=== PATIENT | male | born 1965 | race Caucasian/White ===

== ENCOUNTER → 2017-08-26 | Day surgery (SDC) | payer BC ==
[2017-08-25 16:00] LABS: BASOPHILS # (AUTO) 0.1 (0.0-0.1); BASOPHILS % 0.8 % (0.0-1.0); EOSINOPHILS # (AUTO) 0.1 (0.0-0.4); EOSINOPHILS % 1.2 % (0.0-6.0); HEMATOCRIT 43.7 % (38.2-49.6); LYMPHOCYTES # (AUTO) 1.9 (1.0-3.2); LYMPHOCYTES % 25.6 % (18.0-39.1); MEAN CORPUSCULAR HGB CONC 34.3 g/dL (31-35); MEAN CORPUSCULAR VOLUME 96.3 fL (81-99); MONOCYTES # (AUTO) 0.8 (0.2-0.8); MONOCYTES % 10.8 % (4.4-11.3); NEUTROPHILS # (AUTO) 4.5 (2.1-6.9); NEUTROPHILS % 61.2 % (38.7-80.0); PLATELET COUNT 251 x10e3/uL (140-360); RED BLOOD COUNT 4.54 x10e6/uL (4.3-5.7); RED CELL DISTRIBUTION WIDTH 13.3 % (11.7-14.4)
[2017-08-25 16:11] LABS: INR 0.94; PROTHROMBIN TIME 11.8 seconds (11.9-14.5)
[2017-08-25 16:21] LABS: ALANINE AMINOTRANSFERASE 43 IU/L (0-55); ALBUMIN 4.2 g/dL (3.5-5.0); ALBUMIN/GLOBULIN RATIO 1.4 (0.8-2.0); ALKALINE PHOSPHATASE 60 IU/L (40-150); BLOOD UREA NITROGEN 15 mg/dL (7-26); BUN/CREATININE RATIO 15 (6-25); CALCIUM 9.5 mg/dL (8.4-10.2); CARBON DIOXIDE 28 mmol/L (22-29); CHLORIDE 106 mmol/L (98-107); CHOL/HDL RATIO 2.6 (3.9-4.7); CHOLESTEROL 118 MD/DL (0-199); CREATININE, SERUM 1.03 mg/dL (0.72-1.25); EST GLOMERULAR FILTRATION RATE > 60 ML/MIN (60-); GLUCOSE 95 mg/dL (74-118); HDL CHOLESTEROL 46 MG/DL (40-60); LDL CHOLESTEROL 52 MG/DL (60-130); SODIUM 140 mmol/L (136-145); TRIGLYCERIDES 98 MG/DL (0-149)
[~2017-08-26] VITALS: Ht 172.7 cm; Wt 81.6 kg
[~2017-08-26] MED LIST: ASPIR 8181 MG PO; ATORVASTATIN CA20 MG PO; FENTANYL CITRATE/PF 100MCG/2 ML INJ ONE; HEPARIN SOD/SOD CHLORIDE 2,000 ML ONE; IOPAMIDOL 370 MG/ML 200 ML INFUS..BTL INJ ONE; LIDOCAINE HCL 2% LOCAL 20 ML VIAL ONE; LISINOPRIL10 MG PO; LISINOPRIL2.5 MG PO; LISINOPRIL20 MG PO; METOPROLOL SUCC50 MG PO; METOPROLOL TART25 MG PO; MIDAZOLAM HCL 2 MG/2 ML VIAL ONE; SODIUM CHLORIDE 0.9% 1000ML 1,000 ML ONE
[2017-08-26 06:36] VITALS: BP 184/109
--- OUTSIDE RECORDS SUMMARY | 2017-08-26 07:50 | XMS REPORT | Clinical Summary ---
Author Author [facility] Address Unknown Phone Unavailable Care Team Providers Care Sociocultural Anthropology Professor Name Role Phone PCP Unavailable Allergies No Known Allergies Current Medications Prescription Sig. Disp. Refills Start End Date Status Date atorvastatin (LIPITOR) 40 Take 1 tablet (40 mg 30 tablet 1 07/18/19 Active MG tablet total) by mouth daily. 16 metoprolol (LOPRESSOR) 25 Take 0.5 tablets (12.5 mg 60 tablet 1 Active MG tablet total) by mouth 2 (two) 16 times daily. 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
[2017-08-26 12:07] VITALS: BP 162/94
--- NOTE | 2017-08-26 15:15 | Operative Report ---
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 PROCEDURES PERFORMED 1. Left heart catheterization. 2. Selective coronary angiography. 3. Selective left internal mammary artery to anomalous circumflex from the right coronary cusp angiography. 4. Selective saphenous vein graft to left anterior descending angiography. 5. Right common femoral artery 6-Mexican Angio-Seal closure. PROCEDURE COMPLICATIONS: None. ESTIMATED BLOOD LOSS: Less than 15 mL. PROCEDURE SUMMARY: After consent was obtained, patient was prepped and draped in sterile fashion. The right femoral site was locally infiltrated with 2% lidocaine. Access was obtained using a micropuncture and a 6-Mexican sheath was placed. All catheters were into the proximal ascending aorta over a J-wire and ROSARIO catheter was exchanged over a wire at the subclavian level. JL4 was used for engagement of the left main. JR4 used for engagement of the right coronary artery, engagement of an atheretic, anomalous circumflex from right coronary cusp and engagement of the SVG to LAD. An ROSARIO catheter was used for selective engagement of DAY to anomalous circumflex from right coronary cusp. The JL4 was also used to cross the aortic valve for hemodynamic measurements. At the end of the procedure, a 6-Mexican Angio-Seal was successfully deployed to the right common femoral artery. The following findings were observed: 1. LV pressure 185/18 with end-diastolic pressure of 32. 2. Aortic pressure was 181/95. 3. LVgram revealed preserved left ventricular systolic function and normal regional wall motion with left ventricular ejection fraction of 55% to 60%. 4. There is LAD that arises from the left coronary cusp. It has 60% to 70% mid stenosis prior to the distal anastomosis of the SVG graft. Reflux of the SVG graft is observed from selective engagement of the LAD. The distal LAD is overall small in caliber and seems to be diffusely diseased and somewhat atheretic, with calculated lumen less than 1.5 mm. A couple of diagonals arise prior to the distal anastomosis of the SVG to LAD from the LAD [place] and multiple septal perforators arise from this vessel. 5. The circumflex arises from the right coronary cusp. The origin of this vessel is now atheretic, 99% diseased. There is a left internal mammary artery that perfuses this anomalous circumflex with distal anastomosis of the DAY to an obtuse marginal. There are overall 4 obtuse marginals arising from the circumflex. 6. The right coronary artery is dominant in the proximal portion. There is calcific 30% tubular stenosis. There is over 30% total stenosis. It gives a terminal RPDA and RPLV. 7. Left ventriculogram reveals preserved left ventricular systolic function, normal regional wall motion, left ventricular ejection fraction 55% to 60%. 8. SVG to LAD has 30% mid tubular stenosis. It is a large caliber vein graft that anastomoses distally to a bifurcation of the LAD into small caliber diagonal and a small diffusely diseased distal LAD. 9. The DAY to circumflex is patent with luminal irregularities. CONCLUSIONS 1. Patent left internal mammary artery to anomalous circumflex. 2. Mild disease of saphenous vein graft from aorta to distal left anterior descending. 3. Mild disease of right coronary artery. CONCLUSION 1. Mildly elevated left ventricular end-diastolic pressure. 2. Uncontrolled blood pressure. 3. Preserved left ventricular systolic function. 4. Patent grafts with progression of [place] disease. RECOMMENDATIONS: Intensify medical management including smoking cessation, up-titration of statin therapy, continuation of antiplatelet therapy and up-titration of antihypertensive medications as needed. Weight loss and lifestyle optimization has been extensively discussed. Four-hour bed rest, IV fluids. Anticipate discharge later today. Job#: [id number] WARD
== END | disposition home or self-care (01) ==
LOC: CATH LAB 07:47
PROVIDERS: ATTEND Internal Medicine Cardiovascular Disease
DX: I25.798 Atherosclerosis of other coronary artery bypass graft(s) with other forms of angina pectoris (principal); R94.39 Abnormal result of other cardiovascular function study; I10 Essential (primary) hypertension; Z95.1 Presence of aortocoronary bypass graft; Q24.5 Malformation of coronary vessels; R00.1 Bradycardia, unspecified; E78.5 Hyperlipidemia, unspecified; F17.200 Nicotine dependence, unspecified, uncomplicated; Z01.810 Encounter for preprocedural cardiovascular examination; Z01.812 Encounter for preprocedural laboratory examination; Z79.82 Long term (current) use of aspirin; Z68.27 Body mass index [BMI] 27.0-27.9, adult
CPT/HCPCS: 36415; 80053; 80061; 85025; 85610; 93005; 93459; C1769; J2001; J2250; J7030; Q9967; 36140; 77002

== ENCOUNTER → 2020-01-10 | Day surgery (SDC) | payer BC, OTHER ==
[~2020-01-10] MED LIST changes: +ACETAMINOPHEN/CODEINE 300MG - 30MG TAB ONE; +CEFAZOLIN SOD 1 GM VIAL ONE; +DEXAMETHASONE SOD PHOS INJ 4 MG/ML VIAL ONE; -HEPARIN SOD/SOD CHLORIDE 2,000 ML ONE; +HYDROMORPHONE 2MG/ML 2 MG/ML ML ONE; -IOPAMIDOL 370 MG/ML 200 ML INFUS..BTL INJ ONE; +KETOROLAC TROMETHAMINE 30 MG/ML VIAL ONE; -LIDOCAINE HCL 2% LOCAL 20 ML VIAL ONE; +LIDOCAINE HCL 2% LOCAL INJ 5 ML SDV VIAL INJ ONE; +ONDANSETRON HCL INJ 2MG/ML 2ML 2 MG/ML VIAL ONE; +PROPOFOL IV EMULSION 10 MG/ML 20 ML VIAL ONE; +SEVOFLURANE INHAL SOLN 250 ML PEN BTL ONE; -SODIUM CHLORIDE 0.9% 1000ML 1,000 ML ONE
[2020-01-10 10:15] VITALS: BP 168/98
--- NOTE | 2020-01-11 14:36 | Operative Report ---
DATE OF PROCEDURE: 01/10/2020 SURGEON: Efraín Anderson MD HOOP MACHINE OPERATOR: Kevon Aparicio, certified PA. PREOPERATIVE DIAGNOSIS: Right knee bucket-handle medial meniscal tear. POSTOPERATIVE DIAGNOSIS: Right knee bucket-handle medial meniscal tear. PROCEDURES: Right knee arthroscopy and partial medial meniscectomy. INDICATIONS: The patient is a 54-year-old gentleman with a several month history of pain in his right knee. Clinic exam and MRI findings were consistent with a bucket-handle tear of the medial meniscus. The findings and options have been discussed. The patient would like to proceed with arthroscopic intervention. I have explained that, after this amount of time, the meniscal tear is not likely to be repairable. He states he understands and wishes to proceed. PROCEDURE IN DETAIL: The patient was brought to the operating room and placed under general anesthetic. His right lower extremity was prepped and draped in a sterile manner. A preoperative time-out was performed. The extremity had been exsanguinated and a proximal tourniquet was inflated to 300 mmHg. Standard arthroscopy portals were established. The knee was insufflated with sterile saline and systematically inspected. With the exception of a bucket-handle displaced medial meniscal tear, the knee looked good. The meniscal remnant was frayed and this was on wide tear. The meniscus was reduced, but it was plastically deformed. We elected to perform a partial medial meniscectomy. Meniscal scissors were introduced into the joint. The base of the tear was cut. An additional portal was established to apply traction to the torn meniscus. The posterior base of the meniscus was then debrided. The remnant of the meniscus was debrided back to a stable margin using a combination of biting forceps and a meniscal shaver. Before and after photographs were taken. The arthroscopic instruments were removed. The portal incisions were closed with nylon stitches. A sterile bandage was applied. The patient was extubated and transported to the recovery room in stable condition. There was no blood loss and all needle and sponge counts were correct. Efraín Anderson MD DR/VIRY /[id number]
== END | disposition home or self-care (01) ==
LOC: OR 07:01
PROVIDERS: ATTEND Specialist
DX: S83.211A Bucket-handle tear of medial meniscus, current injury, right knee, initial encounter (principal); I10 Essential (primary) hypertension; E78.5 Hyperlipidemia, unspecified; I25.810 Atherosclerosis of coronary artery bypass graft(s) without angina pectoris; F17.210 Nicotine dependence, cigarettes, uncomplicated; X58.XXXA Exposure to other specified factors, initial encounter; Z01.810 Encounter for preprocedural cardiovascular examination; Z01.812 Encounter for preprocedural laboratory examination; Z11.59 Encounter for screening for other viral diseases; Z79.82 Long term (current) use of aspirin; Z95.1 Presence of aortocoronary bypass graft
CPT/HCPCS: 29881; 93005; J0690; J1100; J1170; J1885; J2001; J2250; J2405; J2704; J3010; U0002